=== PATIENT | female | born 1970 | race Caucasian/White ===

== ENCOUNTER 2018-06-21 03:09 | Emergency (ER) | payer OTHER, SELFPAY ==
[~2018-06-21] VITALS: Ht 157.5 cm; Wt 73.0 kg
[2018-06-21] MEDS ORDERED: HYDROCODONE/ACETAMINOPHEN 5/325MG TABLET PO ONE (03:30)
[2018-06-21] MEDS ORDERED: SILVER SULFADIAZINE 1% CREAM 25GM TOP ONE (03:30)
[2018-06-21 04:12] VITALS: BP 146/98
== END 2018-06-21 04:13 | disposition home or self-care (01) ==
LOC: ER 03:09
DX: T25.222A Burn of second degree of left foot, initial encounter (principal); X12.XXXA Contact with other hot fluids, initial encounter; Y93.89 Activity, other specified; Y92.010 Kitchen of single-family (private) house as the place of occurrence of the external cause
CPT/HCPCS: 16020; 99284; A4217